=== PATIENT | male | born 1940 | race Caucasian/White ===

== ENCOUNTER → 2016-05-30 | Outpatient (CLI) | payer MEDICARE | END | disposition home or self-care (01) | LOC: CFH 10:21 | PROVIDERS: ATTEND Nurse Practitioner | DX: R91.1 Solitary pulmonary nodule (principal) | CPT/HCPCS: 71250 ==

== ENCOUNTER → 2020-04-01 | Outpatient (CLI) | payer MEDICARE ==
[~2020-04-01] MED LIST: REGADENOSON 0.4 MG/5 ML SYRINGE ONE
== END | disposition home or self-care (01) ==
LOC: CVU 10:34
PROVIDERS: ATTEND Internal Medicine Cardiovascular Disease
DX: J90 Pleural effusion, not elsewhere classified (principal); I11.9 Hypertensive heart disease without heart failure; Z95.2 Presence of prosthetic heart valve; Z87.891 Personal history of nicotine dependence
CPT/HCPCS: C8929; Q9957; J2785

== ENCOUNTER 2020-04-06 09:12 | Outpatient (CLI) | payer MEDICARE | END 2020-04-06 23:59 | disposition home or self-care (01) | LOC: CFH 09:12 | PROVIDERS: ATTEND Internal Medicine Cardiovascular Disease | DX: I25.9 Chronic ischemic heart disease, unspecified (principal); R07.9 Chest pain, unspecified; Z95.2 Presence of prosthetic heart valve | CPT/HCPCS: 78452; 93017; A9502; J2785 ==

== ENCOUNTER 2020-04-27 09:16 | Outpatient (CLI) | payer MEDICARE ==
[2020-04-27] MEDS ORDERED: LIDOCAINE 1%, 10ML ONE (09:27)
== END 2020-04-27 23:59 | disposition home or self-care (01) ==
LOC: RAD 09:16
PROVIDERS: ATTEND Registered Nurse
DX: J90 Pleural effusion, not elsewhere classified (principal)
CPT/HCPCS: 32555; 71045; 82150; 82945; 83615; 83986; 84157; 87070; 87205; 88112; 88305; 89051

== ENCOUNTER 2020-05-23 14:06 | Emergency (ER) | payer MEDICARE ==
[~2020-05-23] VITALS: Ht 170.2 cm; Wt 102.3 kg
[2020-05-23] MEDS ORDERED: SODIUM CHLORIDE FLUSH 10ML SYR IVF ONE (15:00)
[2020-05-23 15:08] LABS: BASOPHILS % (AUTO) 1 % (0-1); EOSINOPHILS % (AUTO) 1 % (1-7); LYMPHOCYTES % (AUTO) 16 % (22-44); MEAN CORPUSCULAR HEMOGLOBIN 30.5 pg (27.5-34.5); MEAN CORPUSCULAR HGB CONC 32.7 g/dL (33.2-36.2); MONOCYTES % (AUTO) 9 % (2-9); NEUTROPHILS % (AUTO) 73 % (42-75); PLATELET COUNT 233 x10^3/uL (130-400); RED BLOOD COUNT 4.87 x10^6/uL (4.38-5.82); RED CELL DISTRIBUTION WIDTH 14.4 % (9.4-14.8)
[2020-05-23 15:09] LABS: MD NO
[2020-05-23 15:12] LABS: ALANINE AMINOTRANSFERASE 16 U/L (12-78); ALBUMIN 2.9 g/dL (3.4-5.0); ANION GAP 9 mmol/L (5-15); CALCIUM 8.5 mg/dL (8.5-10.1); CHLORIDE 107 mmol/L (98-107); CREATININE 1.12 mg/dL (0.7-1.3)
[2020-05-23 15:16] LABS: ALKALINE PHOSPHATASE 92 U/L (45-117); BILIRUBIN,TOTAL 0.4 mg/dL (0.2-1.0); TROPONIN I < 0.015 ng/mL (0.000-0.045)
[2020-05-23] MEDS ORDERED: ALBUTEROL/IPRATROPIUM 2.5MG/0.5MG, 3 ML NPPB ONE (15:30)
[2020-05-23] MEDS ORDERED: ALBUTEROL/IPRATROPIUM 2.5MG/0.5MG, 3 ML ONE (15:36)
[2020-05-23 16:39] VITALS: BP 145/88
== END 2020-05-23 16:42 | disposition home or self-care (01) ==
LOC: ED 15:18
DX: J44.1 Chronic obstructive pulmonary disease with (acute) exacerbation (principal); R06.02 Shortness of breath; R00.0 Tachycardia, unspecified; K21.9 Gastro-esophageal reflux disease without esophagitis; I10 Essential (primary) hypertension; E11.9 Type 2 diabetes mellitus without complications
CPT/HCPCS: 36415; 71045; 80053; 83880; 84484; 85025; 93005; 94640; 99285

== ENCOUNTER 2020-06-18 13:03 | Emergency (ER) | payer MEDICARE ==
[~2020-06-18] VITALS: Ht 170.2 cm; Wt 102.0 kg
--- NOTE | 2020-06-18 13:36 | NUR ---
PT WC'D TO ROOM 15 W/ C/O MID EPIGASTRIC ABD PAIN STARTED LAST NIGHT. PT ALSO STATES NAYUSEA W/ EMESIS X 3 SINCE. PT STATES EMESIS BROWN IN COLOR. DENIES BLACK STOOL. PT STATES HX UMBILICAL HERNIA REPAIR 10-15 YRS AGO. UPON PALPATION PT STATES PAIN LESSENED W/ PRESSURE. PT RESTING ON GURNEY. NADN. MONITORS APPLIED. VSS.
[2020-06-18] MEDS ORDERED: ONDANSETRON 2MG/ML, 2ML ONE (13:54)
[2020-06-18] MEDS ORDERED: MORPHINE SULFATE 4 MG/ML, 1ML ONE (13:54)
[2020-06-18 13:59] LABS: BASOPHILS % (AUTO) 0 % (0-1); EOSINOPHILS % (AUTO) 0 % (1-7); LYMPHOCYTES % (AUTO) 6 % (22-44); MEAN CORPUSCULAR HGB CONC 32.8 g/dL (33.2-36.2); MEAN PLATELET VOLUME 10.8 fL (7.4-10.4); MONOCYTES % (AUTO) 5 % (2-9); NEUTROPHILS % (AUTO) 88 % (42-75); PLATELET COUNT 234 x10^3/uL (130-400); RED BLOOD COUNT 5.09 x10^6/uL (4.38-5.82); RED CELL DISTRIBUTION WIDTH 14.7 % (9.4-14.8)
[2020-06-18] MEDS ORDERED: ONDANSETRON 2MG/ML, 2ML IVPush ONE (14:00)
[2020-06-18] MEDS ORDERED: SODIUM CHLORIDE FLUSH 10ML SYR IVF ONE (14:00)
[2020-06-18] MEDS ORDERED: SODIUM CHLORIDE 0.9% 1,000ML IVBOLUS ONE (14:00)
[2020-06-18] MEDS ORDERED: MORPHINE SULFATE 4 MG/ML, 1ML IVPush PRN (14:00)
--- NOTE | 2020-06-18 14:05 | NUR ---
[facility]. MEDICATED PER MAY.
[2020-06-18 14:12] LABS: ALANINE AMINOTRANSFERASE 16 U/L (12-78); ALBUMIN 2.8 g/dL (3.4-5.0); ANION GAP 8 mmol/L (5-15); CALCIUM 8.8 mg/dL (8.5-10.1); CHLORIDE 102 mmol/L (98-107); CREATININE 0.79 mg/dL (0.7-1.3)
[2020-06-18 14:14] LABS: ALKALINE PHOSPHATASE 89 U/L (45-117); BILIRUBIN,TOTAL 0.5 mg/dL (0.2-1.0); TOTAL PROTEIN 7.8 g/dL (6.4-8.2)
--- NOTE | 2020-06-18 14:50 | NUR ---
PT RESTING ON GURNEY. NADN. DURANT.
[2020-06-18] MEDS ORDERED: OMNIPAQUE 350 MG/ML, 100ML BOTTLE ONE (15:20)
--- NOTE | 2020-06-18 15:55 | NUR ---
PT RESTING ON GURNEY. NADN. DURANT.
--- NOTE | 2020-06-18 16:17 | NUR ---
PT PROVIDED W/ WATER FOR PO CHALLENGE.
--- NOTE | 2020-06-18 16:31 | NUR ---
PT TOLERATED PO FLUIDS W/O ISSUES. PLACED FOR RECHECK.
[2020-06-18 17:01] VITALS: BP 147/86
--- NOTE | 2020-06-18 17:02 | NUR ---
PT RESTING ON GURNEY. NADN. DURANT.
[2020-06-29] MEDS ORDERED: TOLT4CAP27 PO (11:41)
== END 2020-06-18 17:14 | disposition home or self-care (01) ==
LOC: ED 13:46
DX: R10.84 Generalized abdominal pain (principal); R11.2 Nausea with vomiting, unspecified; M54.9 Dorsalgia, unspecified
CPT/HCPCS: 36415; 74021; 74177; 80053; 83690; 85025; 96361; 96374; 96375; 99285; J2270; J2405; J7030; Q9967

== ENCOUNTER 2020-06-29 11:13 | Inpatient (IN) | payer MEDICARE ==
[~2020-06-29] VITALS: Ht 170.2 cm; Wt 96.5 kg
[2020-06-29] VITALS (9 sets, daily range): BP systolic 105–158; BP diastolic 59–133
--- NOTE | 2020-06-29 11:28 | NUR ---
VIDEO PRODUCTION ASSISTANT: PT PALE, DIAPHORETIC AND TACHYPNEIC, UNABLE TO OBTAIN GOOD WAVEFORM PULSE OX IN TRIAGE. PT BROUGHT BACK TO ROOM TO NOT DELAY ERP EVAL. PRIMARY RN ALONZO AND CAMI AT BEDSIDE.
[2020-06-29] MEDS ORDERED: TAMS-11 PO (11:41)
[2020-06-29] MEDS ORDERED: OMEP20TA62 PO (11:41)
[2020-06-29] MEDS ORDERED: LISI5TAB7 PO (11:41)
[2020-06-29] MEDS ORDERED: METF500T17 PO (11:41)
[2020-06-29] MEDS ORDERED: HYDR-3241 PO (11:41)
[2020-06-29] MEDS ORDERED: ESOM20CA PO (11:41)
[2020-06-29] MEDS ORDERED: BACL20TA PO (11:41)
[2020-06-29] MEDS ORDERED: PRIM50TA34 PO (11:41)
[2020-06-29] MEDS ORDERED: TOLT4CAP12 PO (11:41)
[2020-06-29] MEDS ORDERED: SODIUM CHLORIDE FLUSH 10ML SYR IVF ONE (12:00)
[2020-06-29 12:12] LABS: MEAN CORPUSCULAR HEMOGLOBIN 29.9 pg (27.5-34.5); MEAN PLATELET VOLUME 11.1 fL (7.4-10.4); PLATELET COUNT 247 x10^3/uL (130-400); RED CELL DISTRIBUTION WIDTH 15.1 % (9.4-14.8)
[2020-06-29 12:17] LABS: MEAN CORPUSCULAR HGB CONC 29.6 g/dL (33.2-36.2)
[2020-06-29 12:23] LABS: ALBUMIN 2.2 g/dL (3.4-5.0); ANION GAP 23 mmol/L (5-15); CALCIUM 8.1 mg/dL (8.5-10.1); CHLORIDE 101 mmol/L (98-107)
--- NOTE | 2020-06-29 12:25 | NUR ---
PT SITTING ON [employer], WATCHING TV. AT BS. JOSEN. NO NEEDS AT THIS TIME. CALL LIGHT WITHIN REACH
[2020-06-29 12:26] LABS: ALANINE AMINOTRANSFERASE 17 U/L (12-78); ALKALINE PHOSPHATASE 59 U/L (45-117); BILIRUBIN,TOTAL 0.2 mg/dL (0.2-1.0); CREATININE 1.54 mg/dL (0.7-1.3); TOTAL PROTEIN 6.1 g/dL (6.4-8.2)
[2020-06-29 12:37] LABS: MD YES
[2020-06-29 12:40] LABS: ANISOCYTOSIS 1+; BAND#(MANUAL) 0.45 x10^3/uL; BANDS%(MANUAL) 2 % (0-7); EOS#(MANUAL) 0.23 x10^3/uL (0.0-0.4); EOS% (MANUAL) 1 % (1-7); LYMPH#(MANUAL) 3.86 x10^3/uL (1-3.4); LYMPHS% (MANUAL) 17 % (22-44); MONOS#(MANUAL) 1.14 x10^3/uL (0.3-2.7); MONOS% (MANUAL) 5 % (2-9); POLYCHROMASIA 1+; SEG#(MANUAL) 17.03 x10^3/uL (1.8-6.8); SEGS% (MANUAL) 75 % (42-75)
[2020-06-29 12:41] LABS: <PLATELET ESTIMATE> ADEQUATE; LARGE PLATELETS 1+
[2020-06-29 12:47] LABS: INTERNATIONAL NORMALIZED RATIO 1.14 (0.93-1.1); PROTHROMBIN TIME 12.2 Seconds (9.6-11.5)
[2020-06-29] MEDS ORDERED: CEFTRIAXONE 1,000 MG in DEXTROSE 5% 50 ML IVPB ONE (13:00)
[2020-06-29] MEDS ORDERED: AZITHROMYCIN 500 MG in SODIUM CHLORIDE 0.9% 250 ML IVPB ONE (13:00)
--- NOTE | 2020-06-29 13:15 | NUR ---
PT TO XR Addendum: 06/29/20 at 1338 by TAYLOR PT TO CT
[2020-06-29] MEDS ORDERED: OMNIPAQUE 350 MG/ML, 100ML BOTTLE ONE (13:58)
--- NOTE | 2020-06-29 14:06 | NUR ---
TASK RN: BLOOD STARTED, VERIFIED BY LIBERTY SANTOS. PT RESTING ON GURNEY W/ CALL LIGHT IN REACH AND SIDE RAILS UPX2. RESP EVEN AND UNLABORED, SULLY.
[2020-06-29] MEDS ORDERED: PANTOPRAZOLE 40 MG IV IVPush SCH (14:30)
[2020-06-29] MEDS ORDERED: SODIUM CHLORIDE FLUSH 10ML SYR IVF PRN (14:30)
[2020-06-29] MEDS ORDERED: LACTATED RINGERS 1,000 ML IVBOLUS ONE ×2 (14:30→15:00)
--- NOTE | 2020-06-29 14:34 | NUR ---
TASK RN: ADMITTING AT BEDSIDE.
--- NOTE | 2020-06-29 14:42 | NUR ---
Pt to be admitted to CCU, room 550. Report called to Beatriz.
[2020-06-29 14:55] LABS: ACETONE, SERUM Negative (Negative)
[2020-06-29] MEDS ORDERED: ONDANSETRON 2MG/ML, 2ML IVPush PRN (15:00)
[2020-06-29] MEDS: INSULIN LISPRO 100 UNITS/ML, PEN SQ-INSULIN SCH ×2 (16:00→21:00)
[2020-06-29 16:04] LABS: MICROSCOPIC INDICATED
[2020-06-29 17:19] LABS: ANION GAP 9 mmol/L (5-15); CALCIUM 7.5 mg/dL (8.5-10.1); CHLORIDE 107 mmol/L (98-107); CREATININE 1.15 mg/dL (0.7-1.3)
[2020-06-29 17:29] LABS: FREE T4 (FREE THYROXINE) 1.02 ng/dL (0.76-1.46)
[2020-06-29] MEDS: PANTOPRAZOLE 80 MG in SODIUM CHLORIDE 0.9% 100 ML IV SCH (17:53)
[2020-06-29] MEDS ORDERED: SODIUM CHLORIDE 0.9% 1,000 ML IV ONE (21:59)
[2020-06-29] MEDS ORDERED: MIDODRINE 5 MG TABLET PO ONE (22:00)
[2020-06-29] MEDS: morphine SULFATE 10 MG/ML, 1ML IVPush PRN (22:20)
[2020-06-30] VITALS (12 sets, daily range): BP systolic 102–148; BP diastolic 47–81
[2020-06-30] MEDS: MELATONIN 5 MG TABLET PO PRN ×2 (01:11→20:53)
[2020-06-30] MEDS: PANTOPRAZOLE 80 MG in SODIUM CHLORIDE 0.9% 100 ML IV SCH ×3 (01:11→23:03)
[2020-06-30 03:11] LABS: ALANINE AMINOTRANSFERASE 18 U/L (12-78); ALBUMIN 1.7 g/dL (3.4-5.0); ANION GAP 7 mmol/L (5-15); CALCIUM 7.2 mg/dL (8.5-10.1); CHLORIDE 112 mmol/L (98-107); CREATININE 0.93 mg/dL (0.7-1.3)
[2020-06-30 03:13] LABS: ALKALINE PHOSPHATASE 41 U/L (45-117); BILIRUBIN,TOTAL 0.3 mg/dL (0.2-1.0); TOTAL PROTEIN 4.7 g/dL (6.4-8.2)
[2020-06-30] MEDS: INSULIN LISPRO 100 UNITS/ML, PEN SQ-INSULIN SCH ×4 (07:00→20:53)
[2020-06-30] MEDS ORDERED: PROMETHAZINE 25 MG/ML, 1ML IVPush PRN (09:30)
[2020-06-30] MEDS ORDERED: LABETALOL 5MG/ML, 20ML IV PRN (09:30)
[2020-06-30] MEDS ORDERED: HYDROmorphone 1 MG/ML, 1ML INJ IVPush PRN (09:30)
[2020-06-30] MEDS ORDERED: hydrALAzine 20 MG/ML, 1ML IV PRN (09:30)
[2020-06-30] MEDS ORDERED: ACETAMINOPHEN 325 MG TABLET PO PRN (09:30)
[2020-06-30] MEDS ORDERED: ONDANSETRON 2MG/ML, 2ML IVPush PRN (09:30)
[2020-06-30] MEDS ORDERED: FENTANYL PF 100 MCG/2ML IV PRN (09:30)
[2020-06-30] MEDS ORDERED: EPHEDRINE 50 MG/ML, 1ML IVPush PRN (09:30)
[2020-06-30] MEDS ORDERED: OXYcodone 5 MG/5 ML ORAL.SOL UDC PO PRN (09:30)
[2020-06-30] MEDS ORDERED: PROPOFOL 10 MG/ML, 20ML ONE (09:48)
[2020-06-30] MEDS ORDERED: EPINEPHRINE SYRINGE 0.1 MG/ML, 10ML ONE (11:39)
[2020-06-30] MEDS: SUCRALFATE 1 GM TABLET PO SCH ×3 (11:41→20:49)
[2020-06-30] MEDS: morphine SULFATE 10 MG/ML, 1ML IVPush PRN (20:52)
[2020-07-01 02:00] VITALS: BP 119/72
[2020-07-01 05:19] LABS: ANION GAP 7 mmol/L (5-15); CALCIUM 7.4 mg/dL (8.5-10.1); CHLORIDE 111 mmol/L (98-107); CREATININE 0.78 mg/dL (0.7-1.3)
[2020-07-01 05:28] LABS: BASOPHILS % (AUTO) 0 % (0-1); EOSINOPHILS % (AUTO) 1 % (1-7); LYMPHOCYTES % (AUTO) 7 % (22-44); MEAN CORPUSCULAR HEMOGLOBIN 30.4 pg (27.5-34.5); MEAN CORPUSCULAR HGB CONC 33.9 g/dL (33.2-36.2); MEAN PLATELET VOLUME 10.1 fL (7.4-10.4); MONOCYTES % (AUTO) 9 % (2-9); NEUTROPHILS % (AUTO) 83 % (42-75); PLATELET COUNT 186 x10^3/uL (130-400); RED BLOOD COUNT 2.75 x10^6/uL (4.38-5.82); RED CELL DISTRIBUTION WIDTH 15.1 % (9.4-14.8)
[2020-07-01] MEDS: morphine SULFATE 10 MG/ML, 1ML IVPush PRN (05:30)
[2020-07-01 05:56] LABS: MD SCAN
[2020-07-01 06:18] VITALS: BP 130/74
[2020-07-01] MEDS: SUCRALFATE 1 GM TABLET PO SCH ×4 (07:34→20:26)
[2020-07-01] MEDS: INSULIN LISPRO 100 UNITS/ML, PEN SQ-INSULIN SCH ×3 (07:35→16:39)
[2020-07-01] MEDS: PANTOPRAZOLE 80 MG in SODIUM CHLORIDE 0.9% 100 ML IV SCH ×2 (10:13→20:27)
[2020-07-01] MEDS ORDERED: OXYC-306 PO (12:36)
[2020-07-01 12:53] VITALS: BP 108/69
[2020-07-01] MEDS ORDERED: OMNIPAQUE 350 MG/ML, 75ML BOTTLE ONE (13:00)
[2020-07-01 14:59] LABS: TOTAL PROTEIN 4.9 g/dL (6.4-8.2)
[2020-07-01 18:42] VITALS: BP 95/59
[2020-07-01] MEDS: MELATONIN 5 MG TABLET PO PRN (20:26)
[2020-07-02 02:07] VITALS: BP 118/74
[2020-07-02 04:43] LABS: BASOPHILS % (AUTO) 1 % (0-1); EOSINOPHILS % (AUTO) 1 % (1-7); LYMPHOCYTES % (AUTO) 10 % (22-44); MEAN CORPUSCULAR HEMOGLOBIN 29.7 pg (27.5-34.5); MEAN CORPUSCULAR HGB CONC 32.9 g/dL (33.2-36.2); MONOCYTES % (AUTO) 10 % (2-9); NEUTROPHILS % (AUTO) 78 % (42-75); PLATELET COUNT 221 x10^3/uL (130-400); RED BLOOD COUNT 2.74 x10^6/uL (4.38-5.82); RED CELL DISTRIBUTION WIDTH 15.4 % (9.4-14.8)
[2020-07-02] MEDS: PANTOPRAZOLE 80 MG in SODIUM CHLORIDE 0.9% 100 ML IV SCH ×2 (05:03→15:00)
[2020-07-02 05:48] LABS: MD SCAN
[2020-07-02 06:57] VITALS: BP 94/51
[2020-07-02] MEDS: SUCRALFATE 1 GM TABLET PO SCH ×4 (07:42→20:29)
[2020-07-02] MEDS ORDERED: DILTIAZEM 5 MG/ML, 5ML IVPush STA (08:47)
[2020-07-02] MEDS ORDERED: DILTIAZEM 5 MG/ML, 5ML ONE (08:53)
[2020-07-02 08:55] VITALS: BP 105/71
[2020-07-02 09:18] VITALS: BP 96/50
[2020-07-02] MEDS ORDERED: AMIODARONE 450 MG in DEXTROSE 5% 241 ML IV PRN (09:30)
[2020-07-02] MEDS ORDERED: AMIODARONE 150 MG in DEXTROSE 5% 100 ML IV ONE (09:30)
[2020-07-02] MEDS ORDERED: FILTER 0.22 MICRON FOR AMIODARONE IV PRN (10:00)
[2020-07-02 12:16] VITALS: BP 102/52
[2020-07-02 18:25] VITALS: BP 100/65
[2020-07-02] MEDS: PANTOPRAZOLE 40MG TABLET PO SCH (20:29)
[2020-07-02] MEDS: AMIODARONE 200 MG TABLET PO SCH (20:29)
[2020-07-02] MEDS: MELATONIN 5 MG TABLET PO PRN (20:30)
[2020-07-03 00:55] VITALS: BP 114/71
[2020-07-03] MEDS: PANTOPRAZOLE 80 MG in SODIUM CHLORIDE 0.9% 100 ML IV SCH (01:00)
[2020-07-03 05:21] LABS: CHLORIDE 110 mmol/L (98-107)
[2020-07-03 05:23] LABS: ANION GAP 5 mmol/L (5-15); CALCIUM 7.7 mg/dL (8.5-10.1)
[2020-07-03 05:27] LABS: BASOPHILS % (AUTO) 1 % (0-1); EOSINOPHILS % (AUTO) 1 % (1-7); LYMPHOCYTES % (AUTO) 10 % (22-44); MEAN CORPUSCULAR HEMOGLOBIN 30.5 pg (27.5-34.5); MEAN CORPUSCULAR HGB CONC 33.7 g/dL (33.2-36.2); MEAN PLATELET VOLUME 10.1 fL (7.4-10.4); MONOCYTES % (AUTO) 9 % (2-9); NEUTROPHILS % (AUTO) 79 % (42-75); PLATELET COUNT 236 x10^3/uL (130-400); RED BLOOD COUNT 2.71 x10^6/uL (4.38-5.82); RED CELL DISTRIBUTION WIDTH 15.6 % (9.4-14.8)
[2020-07-03 06:11] LABS: MD SCAN
[2020-07-03 06:40] VITALS: BP 115/73
[2020-07-03] MEDS: AMIODARONE 200 MG TABLET PO SCH (08:04)
[2020-07-03] MEDS: SUCRALFATE 1 GM TABLET PO SCH ×2 (08:04→11:15)
[2020-07-03] MEDS: PANTOPRAZOLE 40MG TABLET PO SCH (08:04)
[2020-07-03 13:25] VITALS: BP 94/55
[2020-07-03] MEDS ORDERED: PANT40TA6 PO (13:34)
[2020-07-03] MEDS ORDERED: SUCR1TAB33 PO (13:34)
[2020-07-03] MEDS ORDERED: AMIO200T42 PO (13:34)
[2020-07-03] MEDS ORDERED: FLU VACCINE PER PHARMACY IM ONE (14:00)
[2020-07-03] MEDS ORDERED: FLU VACC QS2020-21(6MOS UP)/PF 60MCG/0.5 ML SYR IM-VACC ONE (14:30)
== END 2020-07-03 15:17 | disposition home health service (06) | DRG 377 ==
LOC: ED 14:01 → CCU 14:02 → ED 14:18 → CCU 22:26 → 4WST 06-30 17:41 → DCLOUNGE 07-03 15:08
PROVIDERS: ADMIT Hospitalist; ATTEND Hospitalist
PROC: 30233N1 Transfusion of Nonautologous Red Blood Cells into Peripheral Vein, Percutaneous Approach (ICD-10-PCS; 2020-06-29)
PROC: 0W3P8ZZ Control Bleeding in Gastrointestinal Tract, Via Natural or Artificial Opening Endoscopic (ICD-10-PCS; 2020-06-29)
PROC: 0DB68ZX Excision of Stomach, Via Natural or Artificial Opening Endoscopic, Diagnostic (ICD-10-PCS; 2020-06-30)
PROC: 0W9B3ZZ Drainage of Left Pleural Cavity, Percutaneous Approach (ICD-10-PCS; principal; 2020-07-01)
DX: K26.4 Chronic or unspecified duodenal ulcer with hemorrhage (principal); J96.91 Respiratory failure, unspecified with hypoxia; R57.8 Other shock; N17.9 Acute kidney failure, unspecified; D62 Acute posthemorrhagic anemia; E87.2 Acidosis; J44.0 Chronic obstructive pulmonary disease with (acute) lower respiratory infection; I50.32 Chronic diastolic (congestive) heart failure; D72.820 Lymphocytosis (symptomatic); E11.65 Type 2 diabetes mellitus with hyperglycemia; E78.5 Hyperlipidemia, unspecified; E86.1 Hypovolemia; F10.10 Alcohol abuse, uncomplicated; G89.29 Other chronic pain; I09.9 Rheumatic heart disease, unspecified; I11.0 Hypertensive heart disease with heart failure; I48.91 Unspecified atrial fibrillation; G47.33 Obstructive sleep apnea (adult) (pediatric); K76.0 Fatty (change of) liver, not elsewhere classified; K57.90 Diverticulosis of intestine, part unspecified, without perforation or abscess without bleeding; K44.9 Diaphragmatic hernia without obstruction or gangrene; M54.5 Low back pain; Z20.822 Contact with and (suspected) exposure to COVID-19; K21.9 Gastro-esophageal reflux disease without esophagitis; M54.9 Dorsalgia, unspecified; R53.81 Other malaise; N40.0 Benign prostatic hyperplasia without lower urinary tract symptoms; Z80.1 Family history of malignant neoplasm of trachea, bronchus and lung; Z87.891 Personal history of nicotine dependence; Z95.3 Presence of xenogenic heart valve; Z95.4 Presence of other heart-valve replacement
CPT/HCPCS: 32555; 36415; 36430; 36600; 71045; 71260; 74177; 80048; 80053; 81001; 82010; 82803; 82962; 83605; 83615; 83690; 83735; 84100; 84145; 84155; 84157; 84439; 84443; 85014; 85018; 85025; 85610; 85730; 86480; 86635; 86850; 86900; 86923; 87040; 87070; 87081; 87086; 87205; 87305; 87635; 88112; 88305; 89051; 90686; 93005; G0378; J0456; J0696; J2704; J7060; Q9967; C9113; J0282; J2270; J7030; J7050; J7120; P9016